=== PATIENT | male | born 2000 | race Caucasian/White ===

== ENCOUNTER 2020-01-14 23:26 | Emergency (ER) | payer OTHER, SELFPAY ==
--- NOTE | ~2020-01-14 | CT_ITS ---
EXAMINATION: CT soft tissue neck w con EXAM DATE: 01/15/2020 01:50 INDICATION: Enlarged palatine tonsils. Tonsillitis. TECHNIQUE: Spiral CT of the neck was performed following intravenous injection of 75 mL Omnipaque 350 . Axial, coronal and sagittal images were reviewed. The dose-length product (DLP) for this examinat ion was 596.97 mGy-cm. The exposure was tailored according to patient size (auto mA exposure control ), and iterative reconstruction (ASIR) was used as additional dose reduction technique. There is no prior study for comparison. FINDINGS: Tonsils are enlarged bilaterally, and there is fat stranding in the left parapharyngeal fat , appearance consistent with tonsillitis. There is no focal rim-enhancing fluid collection, no tonsil lar abscess. Left-sided internal jugular chain lymph node at the mandibular angle, level 2 measuring 2.0 x 1.8 cm, several smaller contiguous lymph nodes and smaller right internal jugular chain lymph n odes. These are probably reactive from infection. The thyroid gland is unremarkable. The submandibu lar and parotid glands are symmetric. The superior mediastinum is unremarkable. The airway is unr emarkable. Parapharyngeal and pre-glottic fat planes are preserved. The opacified vasculature is patent. The orbits are unremarkable. Visualized sinuses and mastoid air cells are well aerated. Lung apices are clear. Cervical spine unremarkable. IMPRESSION: Tonsillitis, reactive lymphadenopathy. No drainable abscess. Reviewed, dictated and finalized at location B.
--- NOTE | ~2020-01-14 | XR_ITS ---
EXAMINATION: XR chest 1V portable DATE: 01/15/2020 00:27 INDICATION: Shortness of breath TECHNIQUE: frontal view of the chest was obtained. COMPARISON: None FINDINGS: The lungs are clear with no focal airspace opacities, pulmonary edema, pleural effusion or pneumothor ax. The cardiomediastinal silhouette is normal. Visualized bones and soft tissues are unremarkable. IMPRESSION: 1. Normal chest radiograph. Reviewed, dictated and finalized at location A. IMPRESSION: 1. Normal chest radiograph.
[2020-01-14 23:31] VITALS: BP 169/96; PULSE 109; RESP 22; TEMP 37.8; O2SAT 100
--- NOTE | 2020-01-14 23:35 | ED.GENADULT ---
HPI - General Adult General Chief complaint: Upper Respiratory Infection Stated complaint: ST Time Seen by Provider: 01/14/20 23:35 Source: patient Mode of arrival: ambulatory Limitations: no limitations History of Present Illness HPI narrative: Patient is a 19-year-old male who presents for evaluation of sore throat, shortness of breath. Patient reports a 2-day history of worsening symptoms, reports he has had a dry cough, reports increased difficulty breathing over the past 24 hours. He reports high fever, chills, myalgias. Patient reports sore throat and some difficulty swallowing. Patient reports he has a history of peritonsillar abscess which has required drainage in the past. Patient denies any leg swelling or leg pain. No recent sick contacts. He is staying with a friend in [place], no recent coronavirus contacts. He usually wears a mask when he runs errands, no known exposures that he is aware of. No rash. No abdominal pain, no nausea or diarrhea. Related Data Allergies Allergy/AdvReac Type Severity Reaction Status Date / Time No Known Allergies Allergy Verified 01/14/20 23:35 Review of Systems Review of Systems: Narrative: CONSTITUTIONAL reports fever, chills, diaphoresis EYES: Denies visual changes, redness, or discharge. ENT: Reports sore throat, denies otalgia CARDIOVASCULAR: Denies chest pain, palpitations, or edema. RESPIRATORY: Reports dry cough and shortness of breath GASTROINTESTINAL: Denies abdominal pain, nausea, vomiting, or diarrhea. GENITOURINARY: Denies dysuria or hematuria. SKIN: Denies rash or itching. MUSCULOSKELETAL: Denies back pain, joint pain, reports diffuse myalgias NEUROLOGIC: Denies headache, numbness, or weakness. [facility] Past Medical History Medical History (Updated 01/15/20 @ 02:31 by Cheryl Golden MD) No pertinent past medical history Surgical History Surgical History (Updated 01/14/20 @ 23:45 by Cheryl Golden MD) H/O peritonsillar abscess drainage History of dental surgery Social History Social History (Updated 01/14/20 @ 23:45 by Cheryl Golden MD) Smoking status: Never smoker Alcohol intake: never Substance use: never Gender identity (if verbalized by the patient): Male Exam Narrative: Exam Narrative: GENERAL: Awake, alert, conversant, mildly diaphoretic HEAD: Normocephalic, atraumatic. EYES: PERRLA and EOMI. ENT: Nares clear, no rhinorrhea or epistaxis. Mucous membranes moist. Uvula is midline. Tonsils are erythematous, edematous. No deviation of the pterygoid arches. No trismus. NECK: Supple. CHEST: No respiratory distress, breathing even and non labored HEART: Tachycardic rate, sinus rhythm ABDOMEN:Non distended, non tender EXTREMITIES: Normal range of motion. No edema. SKIN: Warm, dry, no rash. NEURO:No focal deficits. Alert and oriented x3 Course Vital Signs Vital signs: Vital Signs Temperature 37.8 C H 01/14/20 23:31 Pulse Rate 109 H 01/14/20 23:31 Respiratory Rate 22 H 01/14/20 23:31 Blood Pressure 169/96 H 01/14/20 23:31 Pulse Oximetry 100 01/14/20 23:31 Temperature 36.9 C 01/15/20 00:55 Pulse Rate 88 01/15/20 02:44 Respiratory Rate 20 01/15/20 02:44 Blood Pressure 132/82 01/15/20 02:44 Pulse Oximetry 99 01/15/20 02:44 Medical Decision Making MDM Narrative Medical decision making narrative: Patient presented for evaluation of sore throat, difficulty swallowing, fever, cough. At the time of assessment, vital signs are notable for tachycardia, tachypnea, patient is febrile without hypotension. Oxygen is 100% on room air. Patient is not in any respiratory distress. On exam, he does have very enlarged tonsils bilaterally which is most consistent with a strep pharyngitis versus tonsillitis type picture. I see no findings of a [employer] on exam. Laboratory results are relatively reassuring. Mild leukocytosis. No lactic acidosis. No severe electrolyte derangement or acute kidney injury. [place]
--- NOTE | 2020-01-14 23:41 | ECG_ITS ---
Measurements Intervals [place] Rate: 94 P: 55 TN: 124 QRS: 36 QRSD: 104 T: 32 QT: 337 QTc: 423 Interpretive Statements SINUS RHYTHM MINIMAL Q WAVES- INF/LAT LEADS NONSPECIFIC T-WAVE ABNORMALITY- ANTER/INF LEADS BORDERLINE ECG Electronically Signed On 01-15-2020 7:38:19 CDT by Ion Cobos D.O.
[2020-01-14 23:42] VITALS: O2SAT 98
[2020-01-15 00:03] LABS: Alveolar/Arterial O2 Gradient 18.8 mmHg; Base Excess ABG 3.3 mEq/l (+/-2.0); Carboxyhemoglobin 0.8 % THb (0-2.0); Fractional Inspired Oxygen 21 %; HCO3 ABG 26.3 mEq/l (22.0-26.0); Methemoglobin ABG 0.4 %THb (0-1.5); Oxygen Content ABG 20.9 %vol (16.0-22.0); Oxygen Saturation ABG 97.4 % (95.0-100.0); Oxyhemoglobin 95.8 % THb (90.0-100.0); PCO2 ABG 35.4 mmHg (35.0-45.0); PO2 ABG 88.5 mmHg (80.0-100.0); PO2 FiO2 Ratio Arterial Blood 4.21 %; Total Hemoglobin 15.5 g/dL (12.0-18.0); pH ABG 7.489 (7.350-7.450)
[2020-01-15 00:05] LABS: Device ROOM AIR; Modified Allen's Test Pass; Site Drawn RIGHT RADIAL
[2020-01-15] MEDS: SODIUM CHLORIDE 0.9% IV 1,000 ML 999 ML IV CONT (00:05)
--- NOTE | 2020-01-15 00:23 | PC.NURSE ---
Pt states once given Decadron IV the back of his head began to burn about 20 seconds later followed by his private area started to have the burn feeling.
--- NOTE | 2020-01-15 00:26 | PC.NURSE ---
Pt swabbed for COVID and sent down to lab by this RN.
[2020-01-15 00:29] LABS: Basophils Percent Auto 0.2 % (0.2-1.2); Eosinophils Absolute Auto 0.1 K/mm3 (0-0.3); Eosinophils Percent Auto 0.5 % (0-4.4); Hematocrit 46.9 % (42.0-52.0); Immature Granulocyte Absolute 0.03 K/mm3 (0.00-0.031); Immature Granulocyte Percent A 0.3 % (0-0.5); Lymphocytes Absolute Auto 1.51 K/mm3 (0.9-3.2); Lymphocytes Percent Auto 14.4 % (18.3-44.2); Mean Corpuscular HGB Conc 34.1 g/dl (32-36); Mean Corpuscular Hemoglobin 29.7 pg (26-34); Mean Platelet Volume 11.1 fl (7.4-10.4); Monocytes Absolute Auto 0.9 K/mm3 (0.1-0.6); Monocytes Percent Auto 8.8 % (2.6-8.5); Neutrophils Percent Auto 75.8 % (45.5-73.1); Platelet Count Result 186 k/mm3 (150-375); Red Blood Count 5.39 M/mm3 (4.6-6.20); Red Cell Distribution Width 11.7 % (11.5-14.5); White Blood Count 10.5 K/mm3 (4.5-10.0)
[2020-01-15 00:30] VITALS: BP 141/83; PULSE 86; RESP 18; O2SAT 97
[2020-01-15 00:33] VITALS: TEMP 36.9
[2020-01-15 00:38] LABS: Chloride 97 mmol/L (98-107)
[2020-01-15 00:39] LABS: Lactic Acid Reflex 1.5 mmol/L (0.7-2.1); Prothrombin Time 13.3 Seconds (11.1-14.7)
[2020-01-15 00:40] LABS: Partial Thromboplastin Time 26.8 SECONDS (22.3-36.8)
[2020-01-15 00:43] LABS: Alanine Aminotransferase 28 U/L (4-50); Albumin Level 4.9 g/dL (3.7-5.6); Alkaline Phosphatase 76 U/L (58-237); Aspartate Amino Transferase 23 U/L (17-59); Bilirubin,Total 0.8 mg/dL (0.2-1.3); Blood Urea Nitrogen 10 mg/dL (8-21); CRP 5.1 mg/dL (<1.0); Calcium 9.7 mg/dL (8.9-10.7); Carbon Dioxide 27 mmol/L (22-30); Estimated CRCL calculation 131 ml/min; Estimated Glomerular Filt Rate > 60; Glucose 143 mg/dL (75-110); Lactate Dehydrogenase 337 U/L (313-618); Potassium 3.7 mmol/L (3.4-5.0); Sodium 138 mmol/L (134-143)
[2020-01-15] MEDS: PENICILLIN V POTASSIUM 250 MG TABLET 500 MG PO (00:52)
[2020-01-15 00:53] LABS: Troponin I < 0.012 ng/mL (0.000-0.034)
--- NOTE | 2020-01-15 00:53 | PC.NURSE ---
Pt swallowed pills with no problem, pt states his throat feels a little better.
[2020-01-15 00:55] VITALS: TEMP 36.9
[2020-01-15 01:05] LABS: Add Urine Microscopic? YES; Appearance Urine Clear (Clear); Bacteria Urine Trace /hpf; Bilirubin Urine Negative (Negative); Blood Urine Negative (Negative); Color Urine Yellow (Yellow); Glucose Urine UA 1+ mg/dL (Negative); Ketones Urine Negative (Negative); Leukocyte Esterase Ur Negative LEU/UL (Negative); Mucus Urine Rare /lpf; Nitrate Urine Negative (Negative); Protein Urine Negative (Negative); RBC Urine 0-2 /hpf (0-2); Specific Grav Ur 1.015 (1.001-1.035); Urobilinogen Urine Negative mg/dL (<2.0); WBC Urine 0-3 /hpf
[2020-01-15 02:00] VITALS: BP 145/82; PULSE 88; O2SAT 98
[2020-01-15 02:44] VITALS: BP 132/82; PULSE 88; RESP 20; O2SAT 99
[2020-01-16 13:33] LABS: SARS-CoV-2 RNA PCR Negative
== END 2020-01-15 02:40 | disposition home or self-care (01) ==
PROVIDERS: Emergency Provider Emergency Medicine
DX: J06.9 Acute upper respiratory infection, unspecified (principal); J03.90 Acute tonsillitis, unspecified; Z20.828 Contact with and (suspected) exposure to other viral communicable diseases; R94.31 Abnormal electrocardiogram [ECG] [EKG]
CPT/HCPCS: 36415; 36600; 70491; 71045; 80053; 81001; 82375; 82728; 82805; 83050; 83605; 83615; 84484; 85025; 85610; 85730; 86140; 87040; 87081; 87635; 87880; 93005; 96361; 96374; 96375; 99284; A9270; C9803; J0131; J1100; J7030; Q9967; U0003